=== PATIENT | female | born 1945 | race Caucasian/White ===

== ENCOUNTER → 2017-05-22 | Outpatient (CLI) | payer OTHER ==
--- NOTE | ~2017-05-22 | MY29 ---
[facility] A Service of [facility] & [facility] RADIOLOGY TEXT RESULTS PATIENT: ALEXANDRIA DYKES LOCATION: [facility] : 45 UNIT #: [id number] AGE: [address]: SANDRINE NGUYEN APRN SEX: F ORDER DR: [id number] [facility] [address] [place], [place] [address] [id number] O MR#: [id number] Acc #: [id number] NAME: ALEXANDRIA DYKES : 1945 SEX: F STUDY DATE/TIME: 05/22/2017 11:02 UNIT: [facility] ROOM: STUDY DESCRIPTION: MY JEY SCREENING W/ CAD BILAT Attending Physician: Sandrine Nieves M.D. Ordering Physician: Pete Not Listed Primary Care Physician: Sandrine Nieves M.D. MEDICAL IMAGING REPORT This report is preliminary unless electronic signature is present EXAM Bilateral digital screening mammogram with CAD 05/22/2017. INDICATIONS 71-year-old female presenting for routine screening. No reported problems. History of left breast cancer and lumpectomy in 2002. Family history of breast cancer in an aunt. TECHNIQUE CC and MLO views of the breasts were obtained and reviewed with an FDA-approved CAD device. Exaggerated CC lateral also obtained on the left. COMPARISON 10/14/2014, 06/29/2010 FINDINGS Scar marker on the left overlies an area of architectural distortion from prior lumpectomy in the upper outer left breast. Breast parenchyma is composed of scattered fibroglandular densities. The pattern is unchanged. In the right breast at 9 o'clock, there is a small oval-shaped nodule. It measures up to about 6 mm. It should be further evaluated with ultrasound and may represent a small cyst. There are benign calcifications in the lumpectomy bed on the left suggestive of fat necrosis. No new suspicious cluster of microcalcifications. Faint benign-appearing calcifications in the right breast also, at the 9 o'clock position, not significant changed from 2013. IMPRESSION 1. 6-mm nodule in the right breast warrants further evaluation with additional views and potentially a breast ultrasound. 2. Lumpectomy sequela in the left breast. Patients over the age of 40 are entered into a reminder system with target STS. [facility] A Service of [facility] RADIOLOGY TEXT RESULTS PATIENT: ALEXANDRIA DYKES LOCATION: [facility] : 45 UNIT #: [id number] AGE: [address]: SANDRINE NGUYEN ANCIENT ART CURATOR SEX: F ORDER DR: due date for the next mammogram. A result letter will also be sent to the patient. BIRADS: 0 Incomplete; need additional imaging evaluation and/or prior mammograms for comparison. Dictated by... Manuel Ortiz M.D. THIS IS AN ELECTRONICALLY VERIFIED REPORT Manuel Ortiz M.D. at 05/23/2017 4:01 PM Sharon TD: 05/23/2017 12:32 JOB #: [id number] MEDICAL IMAGING REPORT Page 1 of 1 COPY
== END | disposition home or self-care (01) ==
LOC: CWCC 10:22
DX: Z12.31 Encounter for screening mammogram for malignant neoplasm of breast (principal); Z85.3 Personal history of malignant neoplasm of breast; Z80.3 Family history of malignant neoplasm of breast; N63 Unspecified lump in breast; Z98.890 Other specified postprocedural states; Z88.1 Allergy status to other antibiotic agents
CPT/HCPCS: G0202

== ENCOUNTER → 2017-06-11 | Outpatient (CLI) | payer OTHER ==
--- NOTE | ~2017-06-11 | MY25 ---
[facility] A Service of [facility] RADIOLOGY TEXT RESULTS PATIENT: ALEXANDRIA DYKES LOCATION: [facility] : 45 UNIT #: [id number] AGE: [address]: SANDRINE NGUYEN APRN SEX: F ORDER DR: [id number] [facility] [address] [place], [place] [address] [id number] O MR#: [id number] Acc #: [id number] NAME: ALEXANDRIA DYKES : 1945 SEX: F STUDY DATE/TIME: 06/11/2017 12:48 UNIT: [facility] ROOM: STUDY DESCRIPTION: ACE BRO W/ CAD UNI RT Ordering Physician: Sandrine Nieves M.D. MEDICAL IMAGING REPORT This report is preliminary unless electronic signature is present EXAM Right digital diagnostic mammogram INDICATIONS Right breast mass on screening mammogram. TECHNIQUE True lateral view and spot compression views of the right breast in the CC and MLO projections. Images obtained on a digital mammography unit. FDA-approved CAD device was utilized. COMPARISON 05/22/2017 and 10/14/2014. FINDINGS Small mass in the right breast at the 9 o'clock position. No associated microcalcification. This persists on spot compression. It is unchanged dating back to 2013. Targeted right breast ultrasound shows a small hypoechoic lesion measuring 3-4 mm. It has a subtle increased through transmission. IMPRESSION 3-4 mm hypoechoic lesion in the right breast at the 9 o'clock position shows features, most in keeping with a small benign cyst. It is unchanged dating back to 2013, in keeping with benign finding. RECOMMENDATIONS Patient continue with yearly screening. BIRADS: 2 Benign Finding. [facility] A Service of [facility] RADIOLOGY TEXT RESULTS PATIENT: ALEXANDRIA DYKES LOCATION: [facility] : 45 UNIT #: [id number] AGE: [address]: SANDRINE NGUYEN APRN SEX: F ORDER DR: Patients over the age of 40 are entered into a reminder system with target due date for the next mammogram. A result letter will also be sent to the patient. Dictated by... Darien Han M.D. THIS IS AN ELECTRONICALLY VERIFIED REPORT Darien Han M.D. at 06/11/2017 5:00 PM ANDRZEJ/remington TD: 06/11/2017 16:20 JOB #: [id number] MEDICAL IMAGING REPORT Page 1 of 1 COPY
--- NOTE | ~2017-06-11 | US24 ---
[facility] A Service of [facility] / [facility] RADIOLOGY TEXT RESULTS PATIENT: ALEXANDRIA DYKES LOCATION: [facility] : 45 UNIT #: [id number] AGE: [address]: SANDRINE NGUYEN APRN SEX: F ORDER DR: [id number] [facility] [address] [place], [place] [address] [id number] O MR#: [id number] Acc #: [id number] NAME: ALEXANDRIA DYKES : 1945 SEX: F STUDY DATE/TIME: 06/11/2017 13:00 UNIT: [facility] ROOM: STUDY DESCRIPTION: US Breast Unilateral Attending Physician: Sandrine Nieves M.D. Referring Physician: Sandrine Nieves M.D. Ordering Physician: Sandrine Nieves M.D. Primary Care Physician: Sandrine Nieves M.D. MEDICAL IMAGING REPORT This report is preliminary unless electronic signature is present EXAM Right breast ultrasound. INDICATION Right breast mass. PROCEDURE Montilla-scale and Doppler imaging of the right breast at the 9 o'clock position. COMPARISON Concurrently performed mammogram. FINDINGS/IMPRESSION Refer to the separately dictated diagnostic mammogram for workup, findings, and recommendations. Patients over the age of 40 are entered into a reminder system with target due date for the next mammogram. A result letter will also be sent to the patient. BIRADS: 2 Benign finding. Dictated by... Darien Han M.D. THIS IS AN ELECTRONICALLY VERIFIED REPORT Darien Han M.D. at 06/11/2017 5:00 PM EED/jonathan TD: 06/11/2017 16:31 [facility] A Service [facility] RADIOLOGY TEXT RESULTS PATIENT: ALEXANDRIA DYKES LOCATION: [facility] : 45 UNIT #: [id number] AGE: [address]: SANDRINE NGUYEN APRN SEX: F ORDER DR: JOB #: [id number] MEDICAL IMAGING REPORT Page 1 of 1 COPY
== END | disposition home or self-care (01) ==
LOC: CMAM 12:13
DX: R92.8 Other abnormal and inconclusive findings on diagnostic imaging of breast (principal)
CPT/HCPCS: 76641; G0206

== ENCOUNTER → 2017-07-18 | Outpatient (CLI) | payer OTHER ==
--- NOTE | ~2017-07-18 | NM86 ---
[facility] A Service of [facility] & [facility] / [facility] RADIOLOGY TEXT RESULTS PATIENT: ALEXANDRIA DYKES LOCATION: [facility] : 45 UNIT #: [id number] AGE: [address]: SANDRINE NGUYEN APRN SEX: F ORDER DR: [id number] [facility] [address] [place], [place] [address] [id number] O MR#: [id number] Acc #: [id number] NAME: ALEXANDRIA DYKES : 1945 SEX: F STUDY DATE/TIME: 07/18/2017 6:49 UNIT: [facility] ROOM: STUDY DESCRIPTION: NM Thyroid Img W Uptake Attending Physician: Sandrine Nieves M.D. Referring Physician: Sandrine Nieves M.D. Ordering Physician: Staff Doctor Not On Primary Care Physician: Sandrine Nieves M.D. MEDICAL IMAGING REPORT This report is preliminary unless electronic signature is present EXAM Thyroid uptake and scan HISTORY Hyperthyroidism, 17 pound weight loss, brittle nails and hair loss. FINDINGS Patient was given 176.8 mCi of Iodine-123. 24 hours later the uptake was measured at 16.4% which is normal. Image of the gland show relatively uniform uptake throughout both lobes except for the upper right thyroid lobe where there is a small less than 1 cm focus of increased uptake. IMPRESSION 1. There is some focal increased uptake measuring about a cm in diameter in the upper right thyroid lobe. The rest of the tissue has uniform low level uptake. No ultrasound is available for comparison. 2. The uptake is normal at 16.4%. Dictated by... Jorge Hong M.D. THIS IS AN ELECTRONICALLY VERIFIED REPORT Jorge Hong M.D. at 07/18/2017 10:19 PM SUSU/nuria TD: 07/18/2017 17:56 JOB #: [id number] MEDICAL IMAGING REPORT Page 1 of 1 COPY
== END | disposition home or self-care (01) ==
LOC: CNUC 06:25
DX: E05.90 Thyrotoxicosis, unspecified without thyrotoxic crisis or storm (principal)
CPT/HCPCS: 78014; A9516